=== PATIENT | female | born 1945 | race Caucasian/White ===

== ENCOUNTER 2019-03-11 04:24 | Observation (INO) | payer OTHER ==
[2019-03-11] MEDS ORDERED: NA CHLORIDE 0.9% 1,000 ML ONE (05:02)
[2019-03-11] MEDS ORDERED: FAMOTIDINE 20 MG/2 ML VIAL IV ONE (05:02)
[2019-03-11] MEDS ORDERED: ONDANSETRON 4 MG/2 ML VIAL ONE (05:04)
[2019-03-11 05:08] LABS: Protime INR 0.9
[2019-03-11 05:09] LABS: Absolute Lymphocytes (CBC) 0.4 K/uL (0.7-4.9); Basophils % 0.1 % (0-1.3); Hematocrit 36.9 % (36.0-45.0); Lymphocytes % 2.8 % (15.3-44.8); MPV 8.5 fL (7.6-11.3); RBC Red Blood Cell Count 4.01 M/uL (3.86-4.86)
[2019-03-11 05:22] LABS: ALT/SGPT 33 U/L (12-78); AST/SGOT 18 U/L (15-37); Albumin 3.5 g/dL (3.4-5.0); Alkaline Phosphatase 64 U/L (45-117); BUN Blood Urea Nitrogen 23 mg/dL (7-18); Bicarbonate 25 mmol/L (21-32); Bilirubin Direct 0.1 mg/dL (0-0.2); Bilirubin Total 0.4 mg/dL (0.2-1.0); Glucose Level 126 mg/dL (74-106); Lipase 161 U/L (73-393); Magnesium 1.9 mg/dL (1.8-2.4); NT PRO-BNP 282 pg/mL (<125); Potassium 3.9 mmol/L (3.5-5.1); Protein, Total 6.7 g/dL (6.4-8.2); Sodium Level 140 mmol/L (136-145); Troponin (Emerg Dept Use Only) < 0.02 ng/mL (0.0-0.045)
[2019-03-11 05:35] LABS: Blood Morphology Comment NOT SEEN (NOT SEEN); Platelet Estimate ADEQ
[2019-03-11] MEDS ORDERED: PIPER/TAZO/NS 3.375gm 3.375 GM/100 ML BAG ONE (06:28)
--- NOTE | 2019-03-11 06:39 | ER ---
Nurse's Notes [facility] Name: Sugar Fuller Age: 73 yrs Sex: Female : 1945 Arrival Date: 03/11/2019 Time: 04:26 Bed 2 Private MD: Diagnosis: Abdominal tenderness;Vomiting;Diarrhea, unspecified;Other chest pain;Elevated white blood cell count;Bandemia Presentation: 03/11 04:46 Presenting complaint: Patient states: approx 0100 last night she started having bb abdominal pain with vomiting and diarrhea pt recently treated for Cdiff one month ago. Transition of care: patient was not received from another setting of care. Onset of symptoms was March 11, 2019. Risk Assessment: Do you want to hurt yourself or someone else? Patient reports no desire to harm self or others. Initial Sepsis Screen: Does the patient meet any 2 criteria? No. Patient's initial sepsis screen is negative. Does the patient have a suspected source of infection? No. Patient's initial sepsis screen is negative. Care prior to arrival: None. 04:46 Method Of Arrival: Wheelchair bb 04:46 Acuity: MARK ANTHONY 3 bb Historical: - Allergies: 04:50 Bactrim; bb 04:50 Cipro; bb 04:50 Macrobid; bb - Home Meds: 04:50 losartan 50 mg oral tab 1 tab 2 times per day [Active]; atenolol 50 mg Oral tab 1 tab 2 bb times per day [Active]; hydrocodone-acetaminophen 5-325 mg Oral tab [Active]; - PMHx: 04:50 Hypertension; bb - PSHx: 04:50 Hysterectomy; varicose veins; bb - Immunization history:: Adult Immunizations up to date, Flu vaccine is not up to date. - Social history:: Smoking status: unknown. - Ebola Screening: : No symptoms or risks identified at this time. - Family history:: not pertinent. Screenin:55 Abuse screen: Denies threats or abuse. Nutritional screening: No deficits noted. jb4 Tuberculosis screening: No symptoms or risk factors identified. Fall Risk None identified. Assessment: 04:55 General: Appears in no apparent distress. uncomfortable, Behavior is calm, cooperative, jb4 appropriate for age. Pain: Complains of pain in abdomen Pain does not radiate. Pain currently is 6 out of 10 on a pain scale. Neuro: Level of Consciousness is awake, alert, obeys commands, Oriented to person, place, time, situation. Cardiovascular: Patient's skin is warm and dry. Respiratory: Airway is patent Respiratory effort is even, unlabored, Respiratory pattern is regular, symmetrical. GI: Abdomen is round non-distended, Bowel sounds present X 4 quads. Abd is soft and non tender X 4 quads. : No signs and/or symptoms were reported regarding the genitourinary system. EENT: No signs and/or symptoms were reported regarding the EENT system. Derm: Skin is intact, Skin is pink, warm \T\ dry. Musculoskeletal: Circulation, motion, and sensation intact. Range of motion: intact in all extremities. 05:37 Reassessment: Patient appears in no apparent distress at this time. Patient and/or jb4 family updated on plan of care and expected duration. Pain level reassessed. Patient is alert, oriented x 3, equal unlabored respirations, skin warm/dry/pink. Patient states feeling better. 06:50 Reassessment: Patient appears in no apparent distress at this time. Patient and/or jb4 family updated on plan of care and expected duration. Pain level reassessed. Patient is alert, oriented x 3, equal unlabored respirations, skin warm/dry/pink. Vital Signs: 04:50 BP 152 / 64; Pulse 94; Resp 16 S; Temp 98.9(O); Pulse Ox 98% on R/A; Weight 86.64 kg bb (R); Height 5 ft. 5 in. (165.10 cm) (R); Pain 6/10; 05:30 BP 130 / 53; Pulse 82; Resp 16; Pulse Ox 98% on R/A; jb4 06:50 BP 144 / 48; Pulse 77; Resp 16; Pulse Ox 95% on R/A; jb4 04:50 Body Mass Index 31.78 (86.64 kg, 165.10 cm) ED Course: 04:26 Patient arrived in ED. ds1 04:36 Alan Russell MD is Attending Physician. rodrigo 04:44 Luca Gee, RN is Primary Nurse. jb4 04:47 Triage completed. bb 04:50 Arm band placed on Patient placed in an exam room, on a stretcher, on pulse oximetry. bb Family accompanied patient. 04:55 Patient has correct armband on for positive identification. Bed in low position. Call jb4 light in reach. Side rails up X 1. Pulse ox on. NIBP on. 04:55 Initial lab(s) drawn, by me, sent to lab. Inserted saline lock: 20 gauge in right jb4 wrist, using aseptic technique. Blood collected. 05:18 XRAY Chest (1 view) In Process Unspecified. EDMS 06:03 CT Abd/Pelvis - IV Contrast Only In Process Unspecified. EDMS 06:37 Randy Salas MD is Hospitalizing Provider. rodrigo 06:57 US Abdomen Limited In Process Unspecified. EDMS 08:44 No provider procedures requiring assistance completed. Patient admitted, IV remains in jl7 place. intact, No redness/swelling at site. Administered Medications: 05:10 Drug: Pepcid 20 mg Route: IVP; Site: right wrist; jb4 05:35 Follow up: Response: No adverse reaction jb4 05:11 Drug: NS 0.9% 1000 ml Route: IV; Rate: 1 bolus; Site: right wrist; jb4 06:30 Follow up: Response: No adverse reaction; IV Status: Completed infusion; IV Intake: jb4 1000ml 05:11 Drug: Zofran 4 mg Route: IVP; Site: right wrist; jb4 05:35 Follow up: Response: No adverse reaction; Nausea is decreased jb4 06:50 Drug: Zosyn 3.375 grams Route: IVPB; Infused Over: 60 mins; Site: right wrist; jb4 07:50 Follow up: Response: No adverse reaction; IV Status: Completed infusion jl7 Intake: 06:30 IV: 1000ml; Total: 1000ml. jb4 Outcome: 06:38 Decision to Hospitalize by Provider. rodrigo 08:44 Admitted to Tele accompanied by tech, family with patient, via stretcher, room 216, jl7 with chart, Report called to ALY Henriquez 08:44 Condition: stable 08:44 Discharge instructions given to patient, family, Instructed on the need for admit, Demonstrated understanding of instructions. 08:45 Patient left the ED. jl7 Signatures: Dispatcher [employer] Alan York MD MD cha Sanford, Demi ds1 Magali Mott RN RN Luca Montes De Oca RN RN jb4 Susanne Winn RN RN jl7
--- NOTE | 2019-03-11 06:40 | EDPHYS ---
Physician Documentation [facility] Name: Sugar Fuller Age: 73 yrs Sex: Female : 1945 Arrival Date: 03/11/2019 Time: 04:26 Bed 2 Private MD: JULIEN Physician Alan Russell HPI: 03/11 05:02 This 73 yrs old Female presents to ER via Wheelchair with complaints of rodrigo Abdominal Pain, Nausea/Vomiting/Diarrhea, Abdominal Swelling. 05:02 The patient presents to the emergency department with nausea, vomiting, abdominal pain, rodrigo of the right upper quadrant. Onset: The symptoms/episode began/occurred just prior to arrival, this morning. Possible causes: unknown. The symptoms are aggravated by nothing. The symptoms are alleviated by nothing. Associated signs and symptoms: The patient has no apparent associated signs or symptoms. Severity of symptoms: At their worst the symptoms were mild in the emergency department the symptoms are unchanged. The patient has not experienced similar symptoms in the past. Historical: - Allergies: 04:50 Bactrim; bb 04:50 Cipro; bb 04:50 Macrobid; bb - Home Meds: 04:50 losartan 50 mg oral tab 1 tab 2 times per day [Active]; atenolol 50 mg Oral tab 1 tab 2 bb times per day [Active]; hydrocodone-acetaminophen 5-325 mg Oral tab [Active]; - PMHx: 04:50 Hypertension; bb - PSHx: 04:50 Hysterectomy; varicose veins; bb - Immunization history:: Adult Immunizations up to date, Flu vaccine is not up to date. - Social history:: Smoking status: unknown. - Ebola Screening: : No symptoms or risks identified at this time. - Family history:: not pertinent. ROS: 05:02 Constitutional: Negative for fever, chills, and weight loss, Eyes: Negative for injury, rodrigo pain, redness, and discharge, ENT: Negative for injury, pain, and discharge, Neck: Negative for injury, pain, and swelling, Cardiovascular: Negative for chest pain, palpitations, and edema, Respiratory: Negative for shortness of breath, cough, wheezing, and pleuritic chest pain, Back: Negative for injury and pain, : Negative for injury, bleeding, discharge, and swelling, MS/Extremity: Negative for injury and deformity, Skin: Negative for injury, rash, and discoloration, Neuro: Negative for headache, weakness, numbness, tingling, and seizure, Psych: Negative for depression, anxiety, suicide ideation, homicidal ideation, and hallucinations, Allergy/Immunology: Negative for hives, rash, and allergies, Endocrine: Negative for neck swelling, polydipsia, polyuria, polyphagia, and marked weight changes, Hematologic/Lymphatic: Negative for swollen nodes, abnormal bleeding, and unusual bruising. 05:02 Abdomen/GI: Positive for abdominal pain, nausea and vomiting. Exam: 05:02 Constitutional: This is a well developed, well nourished patient who is awake, alert, rodrigo and in no acute distress. Head/Face: Normocephalic, atraumatic. Eyes: Pupils equal round and reactive to light, extra-ocular motions intact. Lids and lashes normal. Conjunctiva and sclera are non-icteric and not injected. Cornea within normal limits. Periorbital areas with no swelling, redness, or edema. ENT: Nares patent. No nasal discharge, no septal abnormalities noted. Tympanic membranes are normal and external auditory canals are clear. Oropharynx with no redness, swelling, or masses, exudates, or evidence of obstruction, uvula midline. Mucous membranes moist. Neck: Trachea midline, no thyromegaly or masses palpated, and no cervical lymphadenopathy. Supple, full range of motion without nuchal rigidity, or vertebral point tenderness. No Meningismus. Chest/axilla: Normal chest wall appearance and motion. Nontender with no deformity. No lesions are appreciated. Cardiovascular: Regular rate and rhythm with a normal S1 and S2. No gallops, murmurs, or rubs. Normal PMI, no JVD. No pulse deficits. Respiratory: Lungs have equal breath sounds bilaterally, clear to auscultation and percussion. No rales, rhonchi or wheezes noted. No increased work of breathing, no retractions or nasal flaring. Back: No spinal tenderness. No costovertebral tenderness. Full range of motion. Female : Normal external genitalia. Skin: Warm, dry with normal turgor. Normal color with no rashes, no lesions, and no evidence of cellulitis. MS/ Extremity: Pulses equal, no cyanosis. Neurovascular intact. Full, normal range of motion. Neuro: Awake and alert, GCS 15, oriented to person, place, time, and situation. Cranial nerves II-XII grossly intact. Motor strength 5/5 in all extremities. Sensory grossly intact. Cerebellar exam normal. Normal gait. Psych: Awake, alert, with orientation to person, place and time. Behavior, mood, and affect are within normal limits. 05:02 Abdomen/GI: Inspection: abdomen appears normal, Bowel sounds: normal, Palpation: mild abdominal tenderness, moderate abdominal tenderness, Liver: no appreciated palpable abnormalities, Hernia: not appreciated. Vital Signs: 04:50 BP 152 / 64; Pulse 94; Resp 16 S; Temp 98.9(O); Pulse Ox 98% on R/A; Weight 86.64 kg bb (R); Height 5 ft. 5 in. (165.10 cm) (R); Pain 6/10; 05:30 BP 130 / 53; Pulse 82; Resp 16; Pulse Ox 98% on R/A; jb4 06:50 BP 144 / 48; Pulse 77; Resp 16; Pulse Ox 95% on R/A; jb4 04:50 Body Mass Index 31.78 (86.64 kg, 165.10 cm) MDM: 04:36 Patient medically screened. [facility] 05:04 Data reviewed: vital signs, nurses notes, lab test result(s), EKG, radiologic studies, [facility] CT scan, plain films. 03/11 04:38 Order name: Basic Metabolic Panel; Complete Time: 06:32 [facility] 03/11 04:38 Order name: CBC with Diff; Complete Time: 06:32 [facility] 03/11 04:38 Order name: LFT's; Complete Time: 06:32 [facility] 03/11 04:38 Order name: Magnesium; Complete Time: 06:32 [facility] 03/11 04:38 Order name: NT PRO-BNP; Complete Time: 06:32 [facility] 03/11 04:38 Order name: PT-INR; Complete Time: 06:32 [facility] 03/11 04:38 Order name: Troponin (emerg Dept Use Only); Complete Time: 06:32 [facility] 03/11 04:38 Order name: Lipase; Complete Time: 06:32 rodrigo 03/11 04:38 Order name: Urine Culture [facility] 03/11 05:13 Order name: Manual Differential; Complete Time: 06:32 EDMS 03/11 06:36 Order name: Stool Culture [facility] 03/11 06:36 Order name: Fecal Leukocyte Stain [facility] 03/11 06:36 Order name: CDIFF [facility] 03/11 06:44 Order name: Urine Dipstick--Ancillary (enter results) 03/11 04:38 Order name: XRAY Chest (1 view) [facility] 03/11 04:38 Order name: EKG; Complete Time: 04:41 [facility] 03/11 04:38 Order name: Cardiac monitoring; Complete Time: 05:23 [facility] 03/11 04:38 Order name: EKG - Nurse/Tech; Complete Time: 05:23 [facility] 03/11 04:38 Order name: CT Abd/Pelvis - IV Contrast Only [facility] 03/11 06:36 Order name: US Abdomen Limited [facility] 03/11 06:53 Order name: NPO EDKS 03/11 06:53 Order name: Urinalysis [facility] 03/11 06:53 Order name: CBC with Automated Diff [facility] 03/11 06:53 Order name: CBC with Automated Diff [facility] 03/11 06:54 Order name: Comprehensive Metabolic Panel [facility] 03/11 06:54 Order name: Comprehensive Metabolic Panel [facility] 03/11 04:38 Order name: IV Saline Lock; Complete Time: 05:23 [facility] 03/11 04:38 Order name: Labs collected and sent; Complete Time: 05:23 [facility] 03/11 04:38 Order name: O2 Per Protocol; Complete Time: 05:23 [facility] 03/11 04:38 Order name: O2 Sat Monitoring; Complete Time: 05:23 [facility] 03/11 04:38 Order name: Urine Dipstick-Ancillary (obtain specimen); Complete Time: 06:47 [facility] Administered Medications: 05:10 Drug: Pepcid 20 mg Route: IVP; Site: right wrist; jb4 05:35 Follow up: Response: No adverse reaction jb4 05:11 Drug: NS 0.9% 1000 ml Route: IV; Rate: 1 bolus; Site: right wrist; jb4 06:30 Follow up: Response: No adverse reaction; IV Status: Completed infusion; IV Intake: jb4 1000ml 05:11 Drug: Zofran 4 mg Route: IVP; Site: right wrist; jb4 05:35 Follow up: Response: No adverse reaction; Nausea is decreased jb4 06:50 Drug: Zosyn 3.375 grams Route: IVPB; Infused Over: 60 mins; Site: right wrist; jb4 07:50 Follow up: Response: No adverse reaction; IV Status: Completed infusion jl7 Disposition: 03/11/19 06:38 Hospitalization ordered by Randy Salas for Inpatient Admission. Preliminary diagnosis are Abdominal tenderness, Vomiting, Diarrhea, unspecified, Other chest pain, Elevated white blood cell count, Bandemia. - Bed requested for Telemetry/MedSurg (Inpatient). - Status is Inpatient Admission. jl7 - Condition is Fair. - Problem is new. - Symptoms have improved. UTI on Admission? No Signatures: Dispatcher [employer] EDMS Alan Russell MD MD cha Ballard, Brenda, RN RN bb Luca Gee RN RN jb4 Susanne Winn RN RN jl7 Enedina Spence Corrections: (The following items were deleted from the chart) 06:46 06:38 Hospitalization Ordered by Randy Salas MD for Inpatient Admission. Preliminary eb diagnosis is Abdominal tenderness; Vomiting; Diarrhea, unspecified; Other chest pain. Bed requested for Telemetry/MedSurg (Inpatient). Status is Inpatient Admission. Condition is Fair. Problem is new. Symptoms have improved. UTI on Admission? No. rodrigo 07:03 06:46 03/11/2019 06:38 Hospitalization Ordered by Randy Salas MD for Inpatient eb Admission. Preliminary diagnosis is Abdominal tenderness; Vomiting; Diarrhea, unspecified; Other chest pain. Bed requested for Telemetry/MedSurg (Inpatient). Status is Inpatient Admission. Condition is Fair. Problem is new. Symptoms have improved. UTI on Admission? No. eb 07:28 07:03 03/11/2019 06:38 Hospitalization Ordered by Randy Salas MD for Inpatient rodrigo Admission. Preliminary diagnosis is Abdominal tenderness; Vomiting; Diarrhea, unspecified; Other chest pain. Bed requested for Telemetry/MedSurg (Inpatient). Status is Inpatient Admission. Condition is Fair. Problem is new. Symptoms have improved. UTI on Admission? NoArianne eb 08:45 07:28 03/11/2019 06:38 Hospitalization Ordered by Randy Salas MD for Inpatient jl7 Admission. Preliminary diagnosis is Abdominal tenderness; Vomiting; Diarrhea, unspecified; Other chest pain; Elevated white blood cell count; Bandemia. Bed requested for Telemetry/MedSurg (Inpatient). Status is Inpatient Admission. Condition is Fair. Problem is new. Symptoms have improved. UTI on Admission? No. rodrigo
[2019-03-11] MEDS ORDERED: ACETAMINOPHEN 500 MG TAB PO PRN (06:49)
[2019-03-11 07:31] LABS: Urine Blood NEGATIVE (NEG); Urine Glucose NEGATIVE (NEG); Urine Protein NEGATIVE (NEG); Urine Specific Gravity 1.015 (1.005-1.030); Urine pH 8.5 (5.0-7.0)
--- NOTE | 2019-03-11 08:27 | RAD REPORT ---
EXAM DESCRIPTION: RAD - Chest Single View - 03/11/2019 5:18 am CLINICAL HISTORY: ABDOMINAL DISTENTION Chest pain. COMPARISON: No comparisons FINDINGS: Portable technique limits examination quality. The lungs are mildly emphysematous but clear. The heart is normal in size. No displaced fractures. IMPRESSION: Mild COPD.
--- NOTE | 2019-03-11 08:28 | RAD REPORT ---
EXAM DESCRIPTION: US - Abdomen Exam Limited - 03/11/2019 6:56 am CLINICAL HISTORY: ABD PAIN COMPARISON: No comparisons FINDINGS: The gallbladder demonstrates no gallstones. No pericholecystic fluid or gallbladder wall t hickening. The common bile duct is normal measuring 5 mm. The liver demonstrates no findings of intrahepatic biliary dilatation. IMPRESSION: Unremarkable examination.
[2019-03-11] MEDS: KCL 20 MEQ/100 mL IVPB 20 MEQ/100 ML BAG IV SCH ×2 (09:00→10:10)
[2019-03-11 09:25] VITALS: BMI 33.1
--- NOTE | 2019-03-11 09:47 | RAD REPORT ---
EXAM DESCRIPTION: CT ABDOMEN AND PELVIS WITH CONTRAST CLINICAL HISTORY: ABD PAIN COMPARISON: None Available. TECHNIQUE: CT of the abdomen and pelvis performed following IV administration of iodinated contrast. FINDINGS: Lung Bases: The visualized lung bases are clear. Bones: Degenerative change of the spine. Abdomen: Liver: The liver has normal size and density. No intrahepatic mass or biliary dilatation. Gallbladder: No calcified gallstones. Spleen, Pancreas, and Adrenal Glands: The spleen, pancreas, and adrenal glands are unremarkable. Kidneys: The kidneys have normal size without evidence of solid mass or hydronephrosis. Vasculature: Aortoiliac atherosclerosis. IVC is unremarkable. The portal vein is patent. The proxim al visceral and renal arteries are patent. Stomach: The stomach and duodenum have normal course. Other: No free intraperitoneal air. No free fluid or lymphadenopathy. Pelvis: Bladder: Urinary bladder is unremarkable. Bowel: No dilated loops of large or small bowel. Scattered diverticula of the colon. Appendix: Normal appendix. Pelvis: Prior hysterectomy. IMPRESSION: 1. No acute inflammatory or obstructive process identified. 2. Diverticulosis without evidence of acute diverticulitis. This exam was performed according to our departmental dose-optimization program, which includes autom ated exposure control, adjustment of the mA and/or kV according to patient size and/or use of iterati ve reconstruction technique. Electronically signed by: Gelacio Shaw 03/11/2019 6:15 AM SEWAGE DISPOSAL ENGINEER Due to temporary technical issues with the PACS/Fluency reporting system, reports are being signed by the in house radiologist as a courtesy to ensure prompt reporting. The interpreting radiologist is f ully responsible for the content of the report.
[2019-03-11] MEDS: NA CHLORIDE 0.9% 1,000 ML IV SCH ×2 (10:10→18:15)
[2019-03-11] MEDS ORDERED: HYDROCODONE/APAP 5/325 MG TAB PO PRN (11:19)
--- NOTE | 2019-03-11 11:58 | EKG ---
Test Date: 2019-03-11 Test Time: 05:05:42 Retarder Operator: WEST MEASUREMENT RESULTS: Intervals: Rate: 79 TX: 174 QRSD: 84 QT: 382 QTc: 438 [place]: P: 39 TX: 174 QRS: 14 T: 33 INTERPRETIVE STATEMENTS: Normal sinus rhythm Anteroseptal infarct, age undetermined Abnormal ECG No previous ECG available for comparison Electronically Signed On 03-11-19 11:56:59 [employer] SYSTEMS ADMINISTRATOR by Umberto Rooney
[2019-03-11 12:17] LABS: Urine Appearance CLEAR; Urine Bilirubin NEGATIVE (NEG); Urine Blood NEGATIVE (NEG); Urine Color YELLOW; Urine Glucose NEGATIVE (NEG); Urine Protein NEGATIVE (NEG); Urine Specific Gravity 1.025 (1.005-1.030); Urine Urobilinogen 0.2 mg/dL (0.2-1.0)
[2019-03-11 12:22] LABS: Urine Microscopic Reflex NO UMIC
[2019-03-11] MEDS ORDERED: POTASSIUM CL SA 10 MEQ TAB PO ONE (12:30)
[2019-03-11] MEDS: VANCOMYCIN ORAL SOLN 250 MG/5 ML OSYR PO SCH ×2 (12:49→18:16)
[2019-03-11] MEDS: ENOXAPARIN 40 MG/0.4 ML SQ SCH (18:15)
--- NOTE | 2019-03-11 21:49 | HP ---
Date of Admission: 03/11/2019 Chief Complaint: Abdominal pain, diarrhea. Code Status: Full. History Of Present Illness: Patient is a 73-year-old female with past medical history of hypertension, chronic pain, history of C diff in the past 1 month ago after being treated with antibiotics for UTI. Patient is in town visiting her family for [place], started having sudden onset of abdominal pain that is crampy in nature, nonradiating, along with several episodes of watery loose stools, diarrhea, which is foul smelling. Patient does report some nausea and 1 episode of vomiting. Denies any ill contacts. The patient's symptoms are constant, moderate, progressively worsening. Therefore, she came into the ER for further evaluation. She was not able to keep much p.o. intake down. In the ER, her vital signs were stable, she was afebrile. Her workup revealed white count of 12.8. She had bandemia. Electrolytes were stable. CT scan of the abdomen was done, which showed diverticulosis, but no diverticulitis, inflammatory process were seen. Patient was referred for admission. When seen , the patient was awake, alert, oriented x3, in some mild distress. Past Medical History: Hypertension and chronic pain. Surgical History: Hysterectomy and surgery for varicose veins and breast biopsy in the 70s, which was benign. Allergies: TO SULFA, TRIMETHOPRIM, CIPRO, NITROFURANTOIN. Medications: The patient is on atenolol, losartan, multivitamins, and hydrocodone for her pain. Social History: Patient denies any tobacco use or alcohol use. No illicit drug use. Patient has a remote history of smoking in the 70s, quit in the 70s. Family History: Both brothers have lung cancer. Review of Systems: Ten-point system reviewed, negative except as per HPI. Physical Examination: Vital Signs: Temperature 98.9, heart rate 94, blood pressure 162/64, respirations 16, O2 98% on room air. General: Awake, alert, and oriented x3, elderly female, obese, ill-appearing, in some mild distress. HEENT: Normocephalic, atraumatic. PERRLA. EOMI. Dry mucous membranes. Oropharynx is clear. Normal dentition. Conjunctivae are anicteric. Neck: Supple. No JVD trachea midline. CV: S1, S2. Regular rate and rhythm. Peripheral pulses present. Respiratory: Moving air well bilaterally. No wheezing or stridor. No use of accessory muscles. Gastrointestinal: Abdomen is soft. MILD tenderness to palpation, mildly distended, hyperactive bowel sounds. No guarding or rigidity. Extremities: No clubbing, cyanosis, or edema. No calf tenderness. Neuro: Cranial nerves 2 through 12 intact grossly. No focal neurological deficits. Speech is normal. Skin: No rashes. Normal skin turgor. Psych: Mood is okay. Affect is full. Insight and judgment are good. Laboratory Data: UA is negative. Sodium 140, potassium 3.9, chloride 107, CO2 25, BUN 23, creatinine 0.86, glucose 126, calcium 8.4, magnesium 1.9, total bilirubin 0.4, AST 18, ALT 33, and lipase 161. Troponin less than 0.02. INR 0.9. WBC 12.8, H and H 12.4 and 36.9, platelets 252, neutrophils 91%, 12% bandemia. Imaging Studies: Ultrasound of the abdomen shows unremarkable examination. CT scan of the abdomen shows no acute inflammatory or obstructive process, shows diverticulosis without evidence of acute diverticulitis. Lung bases are clear. Chest x-ray personally reviewed shows mild COPD. Assessment: A 73-year-old female with, 1. Acute generalized abdominal pain likely secondary to diarrhea and possible gastroenteritis versus C diff. CT scan of the abdomen does not show any acute processes and does show diverticulosis. 2. Diarrhea likely secondary to viral gastroenteritis versus bacterial gastroenteritis, possibly C diff. Patient has history of C diff. We will place her on isolation and obtain C diff. We will also check stool culture and fecal leukocyte. Patient does have elevated white blood cell count and bandemia. We will continue with IV hydration. We will start on clear liquids. 3. Essential hypertension. Resume home medications as appropriate. 4. Chronic pain syndrome. Patient is on chronic narcotics. 5. Obesity, BMI 33, counseled. 6. Chronic obstructive pulmonary disease, chronic bronchitis, although patient has never been officially diagnosed. Chest x-ray changes do show chronic obstructive pulmonary disease. We will recommend outpatient PFTs. We will use albuterol p.r.n. The patient is a nonsmoker, smoked in the past in the 70s. 7. Deep venous thrombosis prophylaxis, sequential compression devices, we will add Lovenox. [facility], length of stay greater than 2 midnights. MICHA Voice ID: [id number] MTDD
[2019-03-11] MEDS: LACTOBACILLUS/ACIDOPHILUS TAB PO SCH (22:00)
[2019-03-11] MEDS: atenoloL 50 MG TAB PO SCH (22:01)
[2019-03-11] MEDS: LOSARTAN POTASSIUM 50 MG TABLET PO SCH (22:01)
[2019-03-11] MEDS ORDERED: ZOLPIDEM TARTRATE 10 MG TABLET PO ONE (22:05)
[2019-03-12] MEDS: VANCOMYCIN ORAL SOLN 250 MG/5 ML OSYR PO SCH ×5 (01:20→23:51)
[2019-03-12] MEDS: NA CHLORIDE 0.9% 1,000 ML IV SCH (04:25)
[2019-03-12 04:59] LABS: Absolute Lymphocytes (CBC) 1.8 K/uL (0.7-4.9); Basophils % 0.3 % (0-1.3); Hematocrit 32.6 % (36.0-45.0); MPV 8.8 fL (7.6-11.3); RBC Red Blood Cell Count 3.45 M/uL (3.86-4.86)
[2019-03-12 05:29] LABS: Albumin 2.9 g/dL (3.4-5.0); Bilirubin Total 0.4 mg/dL (0.2-1.0); Potassium 4.1 mmol/L (3.5-5.1); Protein, Total 5.7 g/dL (6.4-8.2)
[2019-03-12] MEDS: atenoloL 50 MG TAB PO SCH ×2 (08:24→20:44)
[2019-03-12] MEDS: LACTOBACILLUS/ACIDOPHILUS TAB PO SCH ×3 (08:24→20:44)
[2019-03-12] MEDS: LOSARTAN POTASSIUM 50 MG TABLET PO SCH ×2 (08:24→20:44)
[2019-03-12] MEDS: D5.45NS W/KCL 20MEQ 20 MEQ/1,000 ML BAG IV SCH ×2 (11:00→20:45)
[2019-03-12 13:42] LABS: C.diff Antigen/Toxin Ag pos : Tox neg (NEG : NEG)
--- NOTE | 2019-03-12 14:50 | PN ---
Date of Progress Note: 03/12/2019 History Of Present Illness: The patient seen and examined. Chart reviewed and case discussed with RN. Patient has multiple episodes of diarrhea still ongoing. Does report some nausea. Medications reviewed. Physical Examination: Vital Signs: Temperature 96.8, heart rate 63, blood pressure 188/80, respirations 18, O2 sat 96% on room air. General: Awake, alert, oriented x3, in some mild distress. Elderly female, obese, ill-appearing. CV: S1, S2. Regular rate and rhythm. Peripheral pulses present. Respiratory: Moving air well bilaterally. No wheezing or stridor. Gastrointestinal: Abdomen is soft. Mild tenderness to palpation. No rebound or guarding. Positive bowel sounds. Extremities: No clubbing, cyanosis, or edema. Neurologic: Nonfocal. Laboratory Data: WBC 5.2, H and H 10.7 and 32.6, platelets 205, no bands. Sodium 144, potassium 4.1, chloride 115, CO2 of 25, BUN 9, creatinine 0.69, glucose 99, calcium 8.3. C diff assay is pending. Stool studies also pending. Urine culture growing out 2+ gram-negative rods. Assessment And Plan: A 73-year-old female with. 1. Acute generalized abdominal pain secondary to gastroenteritis. We will keep n.p.o. for now. Switch to D5 half normal saline .. 2. Diarrhea likely due to viral gastroenteritis versus bacterial infection. Clostridium difficile assay still pending. Stool cultures are also pending. We will consult Infectious Disease. 3. Asymptomatic bacteriuria. Patient was recently treated for urinary tract infection 1 month ago. UA is negative; however, urine cultures growing out 2+ gram-negative rods. The patient is asymptomatic at this time. We will continue to monitor. Avoid any additional antibiotics as the patient may have Clostridium difficile and antibiotics may worsen condition. We will continue with oral vancomycin for Clostridium difficile prophylactically. 4. Nonintractable nausea and vomiting. NPO, anti-emetics. Not tolerating diet 5. Chronic pain syndrome. Continue narcotics. 6. Obesity, BMI 33. 7. Chronic obstructive pulmonary disease and chronic bronchitis. Continue with albuterol as outpatient. 8. Essential hypertension. Blood pressure not well controlled. We will use hydralazine p.r.n. Deep venous thrombosis prophylaxis. Sequential compression devices. Plan, ID consultation. Unfortunately, GI is not available. We will follow up with C diff. Once condition is improving, we will advance diet. /STANLEY Voice ID: [id number] Report ID: [id number] MTDD
[2019-03-12] MEDS: ENOXAPARIN 40 MG/0.4 ML SQ SCH (16:27)
[2019-03-12] MEDS ORDERED: ZOLPIDEM TARTRATE 5 MG TABLET PO PRN (20:53)
[2019-03-12 23:09] VITALS: O2SAT 99
[2019-03-13] MEDS ORDERED: HYDRALAZINE HCL 20 MG/ML VIAL IV PRN ×2 (04:32→08:24)
[2019-03-13] MEDS: VANCOMYCIN ORAL SOLN 250 MG/5 ML OSYR PO SCH ×3 (05:19→16:12)
[2019-03-13 06:31] LABS: Absolute Lymphocytes (CBC) 1.5 K/uL (0.7-4.9); Basophils % 0.6 % (0-1.3); Hematocrit 34.8 % (36.0-45.0); Lymphocytes % 22.9 % (15.3-44.8); MPV 9.5 fL (7.6-11.3); RBC Red Blood Cell Count 3.77 M/uL (3.86-4.86)
[2019-03-13] MEDS: D5.45NS W/KCL 20MEQ 20 MEQ/1,000 ML BAG IV SCH (06:33)
[2019-03-13] MEDS ORDERED: DIPHENHYDRAMINE 50 MG/ML VIAL IV STA (06:35)
[2019-03-13 06:38] LABS: BUN Blood Urea Nitrogen 5 mg/dL (7-18); Bicarbonate 24 mmol/L (21-32); Glucose Level 116 mg/dL (74-106); Potassium 3.8 mmol/L (3.5-5.1); Sodium Level 143 mmol/L (136-145)
[2019-03-13] MEDS: atenoloL 50 MG TAB PO SCH ×2 (09:00→11:10)
[2019-03-13] MEDS: LOSARTAN POTASSIUM 50 MG TABLET PO SCH ×2 (09:00→11:09)
[2019-03-13] MEDS: LACTOBACILLUS/ACIDOPHILUS TAB PO SCH ×2 (11:09→15:20)
[2019-03-13 14:23] VITALS: BP 142/68; TEMP 97.7
--- NOTE | 2019-03-14 11:34 | DS ---
Date of Discharge: 03/13/2019 Discharge Diagnoses: 1.Colitis, rule out Clostridium difficile. 2.Abdominal pain secondary to colitis, resolved. 3.Diarrhea secondary to colitis. 4.Asymptomatic bacteriuria. 5.Chronic pain syndrome. 6.Nausea, vomiting, resolved. 7.Chronic obstructive pulmonary disease. 8.Hypertension. Procedure: 1.CT of the abdomen and pelvis showed diverticulosis without evidence of diverticulitis. 2.Abdominal ultrasound done on the day of admission was unremarkable. History Of Present Illness: Please refer to Dr. Hillman's history and physical. Hospital Course: Initially, the patient presented with sudden onset of acute abdominal pain which wa s crampy, associated with watery loose stool which was foul smelling. In the ER, CT scan showed dive rticulosis, but no diverticulitis. Inflammatory process was seen. Patient was admitted. She was st arted on oral vancomycin, given her history of recent C diff. C diff was checked, but was negative f or toxin and it showed the patient was colonized. While she was continued on oral vancomycin, her di arrhea improved. Her abdominal pain resolved. Dr. Hillman considered GI consult, but there was no GI available over the holiday. Given patient's improvement, we advised patient to advance her diet slow ly and continue on the BRAT diet as outpatient for few days. We will continue on vancomycin for 8 mo re days to complete 10 days. Her UA was positive, but given the fact that the colony was below 100,0 00, so we thought it is probably colonization, not active infection and the fact that the patient had C diff after her antibiotic use for UTI. Dr. Hillman decided not to start on antibiotic. The patient do not have any dysuria. No fever or chills. She will be discharged today in stable condition to [facility] her home medication. She advised to follow up with her primary care physician on Friday or . Adjust her blood pressure medication. Discharge Condition: Stable. Discharge Diet: Advanced as tolerated. Currently on full. Discharge Followup: With primary care physician in 1 to 2 days. Discharge Medications: Vancomycin 125 mg orally every 6 hours, Tenormin 50 mg daily twice a day, hyd rocodone 1 tablet twice a day, losartan 50 mg twice a day, multivitamin 1 tablet once a day. Discharge Physical Examination: Vital Signs: Blood pressure is 142/68, respiratory rate 18, pulse 5 9, temperature 97.7, saturating 98%. General: Patient is alert and oriented x3, does not look in any distress. HEENT: Atraumatic, normocephalic. PERRLA. Oral mucosa is moist. Neck: Supple. No JVD. No carotid bruit. Chest: Clear to auscultation. Good air entry. Heart: Regular rate and rhythm. S1, S2 normal. No gallop or murmur. Abdomen: Soft, nontender. No masses. No hepatosplenomegaly. Positive bowel sounds. Extremities: No clubbing, cyanosis, or edema. No calf tenderness. Neurologic: Grossly intact. ULISES/MODKain Voice ID: [id number] Report ID: [id number]
== END 2019-03-13 16:35 | disposition home or self-care (01) ==
LOC: ER 04:24 → INTOOBSV 06:59 → ERHOLD 06:59 → 2ND 08:16
PROVIDERS: ADMIT Family Medicine; ATTEND Family Medicine
DX: K52.9 Noninfective gastroenteritis and colitis, unspecified (principal); R82.71 Bacteriuria; J44.9 Chronic obstructive pulmonary disease, unspecified; I10 Essential (primary) hypertension; G89.4 Chronic pain syndrome
CPT/HCPCS: 96365; 96361; 93005; 87088; 87045; 85025 ×3; 87086; 80048 ×2; 36415 ×3; 83735; 89055; 84100; 85610; 80076; 87046; 87077; 87186; 81003 ×2; 87324; 84484; 83690; 80053; 83880; 87449; 74177; 71045; 76705; 96375; 99285; Q9967; J0360; J1200; J1650 ×2; J2543; G0378 ×5; J7030 ×4; J2405